=== PATIENT | male | born 1955 | race American Indian/Alaskan Native ===

== ENCOUNTER → 2019-05-31 | Outpatient (CLI) | payer OTHER ==
[~2019-05-31] MED LIST: AMOCLA875 PO; BENADRYL25 MG PO; DIALYVITE V5000 UNIT PO; HYDR1TAB94 PO; Maxalt Mlt10 MG PO; NAPR375 PO; OYSTER SHELL 51 EACH PO; PROM25 PO; Zyrtec10 MG
[2019-05-31 12:09] LABS: Calcium, Urine 35.5 mg/dL (< 17.5)
[2019-05-31 13:25] LABS: Creatinine Urine 99.2 mg/dL (27.00-270.00)
== END | disposition home or self-care (01) ==
LOC: LAB 09:38 → LAB SHORT 09:38
PROVIDERS: Internal Medicine Endocrinology, Diabetes & Metabolism
DX: E21.3 Hyperparathyroidism, unspecified (principal); M85.80 Other specified disorders of bone density and structure, unspecified site
CPT/HCPCS: 81050; 82340; 82570

== ENCOUNTER 2019-08-02 07:51 | Day surgery (SDC) | payer OTHER ==
[~2019-08-02] VITALS: Ht 165.1 cm; Wt 83.8 kg
[~2019-08-02 07:51] MED LIST changes: -OYSTER SHELL 51 EACH PO; -Zyrtec10 MG
[2019-08-02] MEDS ORDERED: Zyrtec10 MG (08:41)
== END 2019-08-02 12:24 | disposition home or self-care (01) ==
LOC: ORSCSDS 07:51
PROVIDERS: Otolaryngology
PROC: 0GTR0ZZ Resection of Parathyroid Gland, Open Approach (ICD-10-PCS; principal; 2019-08-02 09:15)
DX: E21.0 Primary hyperparathyroidism (principal)
CPT/HCPCS: 83970; 88307; 88331; J1100; J2250; J2405; J2704; J3010; J7120

== ENCOUNTER 2019-08-04 03:45 | Emergency (ER) | payer OTHER ==
[~2019-08-04] VITALS: Ht 165.1 cm; Wt 81.7 kg
[~2019-08-04 03:45] MED LIST changes: +Zyrtec10 MG
[2019-08-04] MEDS ORDERED: OYSTER SHELL 51 EACH PO (04:09)
[2019-08-04 04:34] LABS: BASOPHILS ABSOLUTE AUTO 0.08 K/mm3 (0.00-0.23); BASOPHILS PERCENT AUTO 1 % (0-2); EOSINOPHILS ABSOLUTE AUTO 0.44 K/mm3 (0.00-0.68); EOSINOPHILS PERCENT AUTO 5 % (0-6); Hematocrit 43.5 % (37.0-53.0); Hemoglobin 14.6 g/dL (13.5-17.5); IMMATURE GRAN ABSOLUTE AUTO 0.01 K/mm3 (0.00-0.10); IMMATURE GRAN PERCENT AUTO 0 % (0-1); LYMPHOCYTES ABSOLUTE AUTO 2.83 K/mm3 (0.84-5.20); LYMPHOCYTES PERCENT AUTO 34 % (21-46); MONOCYTES ABSOLUTE AUTO 0.66 K/mm3 (0.16-1.47); MONOCYTES PERCENT AUTO 8 % (4-13); Mean Corpuscular HGB 31.4 pg (26.0-34.0); Mean Corpuscular HGB Conc 33.6 g/dL (31.5-36.5); Mean Corpuscular Volume 94 fL (80-100); Mean Platelet Volume 9.5 fL (9.1-12.4); NEUTROPHILS ABSOLUTE AUTO 4.41 K/mm3 (1.96-9.15); NEUTROPHILS PERCENT AUTO 52 % (41-73); Platelet Count 202 K/mm3 (150-400); RDW Coefficient Variation 12.6 % (11.7-14.2); RDW Standard Deviation 43.5 fL (35.1-46.3); Red Blood Cell Count 4.65 M/mm3 (4.30-5.90); White Blood Cell Count 8.43 K/mm3 (4.00-11.30)
[2019-08-04 04:50] LABS: Alanine Aminotransfer (ALT/SGP 45 U/L (12-78); Albumin, Blood 3.5 g/dL (3.4-5.0); Albumin/Globulin Ratio 1.2 (0.8-1.8); Alk Phos 103 U/L (50-136); Anion Gap 7 mmol/L (6-16); Aspartate Aminotrans (AST/SGOT 20 U/L (12-37); Bilirubin, Total 0.3 mg/dL (0.1-1.0); Blood Urea Nitrogen 28 mg/dL (8-24); Bun/Creatinine Ratio 24.8 (12.0-20.0); CO2, Blood 25 mmol/L (21-32); Calcium, Blood 9.3 mg/dL (8.5-10.1); Chloride, Blood 110 mmol/L (98-108); Creatinine, Blood 1.13 mg/dL (0.60-1.20); Free Thyroxine 1.14 ng/dL (0.70-1.60); Globulin, Blood 2.9 g/dL (2.2-4.0); Glomerular Filtration Rate >60 (60-); Glucose, Blood 94 mg/dL (70-99); Potassium, Blood 3.9 mmol/L (3.5-5.5); Sodium, Blood 142 mmol/L (136-145); Total Protein, Blood 6.4 g/dL (6.4-8.2)
== END 2019-08-04 06:21 | disposition home or self-care (01) ==
LOC: ER 03:45
PROVIDERS: Emergency Medicine
DX: K13.0 Diseases of lips (principal)
CPT/HCPCS: 80053; 84439; 84443; 85025; 99283

== ENCOUNTER 2021-01-05 15:49 | Emergency (ER) | payer OTHER ==
[~2021-01-05] VITALS: Ht 165.1 cm; Wt 81.7 kg
[~2021-01-05 15:49] MED LIST changes: -DIALYVITE V5000 UNIT PO; +OYSTER SHELL 51 EACH PO; +VITAMIN D5000 UNIT PO
[2021-01-05 16:25] LABS: BASOPHILS ABSOLUTE AUTO 0.08 K/mm3 (0.00-0.23); BASOPHILS PERCENT AUTO 1 % (0-2); EOSINOPHILS ABSOLUTE AUTO 0.23 K/mm3 (0.00-0.68); EOSINOPHILS PERCENT AUTO 4 % (0-6); Hematocrit 46.3 % (37.0-53.0); Hemoglobin 15.7 g/dL (13.5-17.5); IMMATURE GRAN ABSOLUTE AUTO 0.01 K/mm3 (0.00-0.10); IMMATURE GRAN PERCENT AUTO 0 % (0-1); LYMPHOCYTES ABSOLUTE AUTO 1.91 K/mm3 (0.84-5.20); LYMPHOCYTES PERCENT AUTO 29 % (21-46); MONOCYTES ABSOLUTE AUTO 0.61 K/mm3 (0.16-1.47); MONOCYTES PERCENT AUTO 9 % (4-13); Mean Corpuscular HGB 30.4 pg (26.0-34.0); Mean Corpuscular HGB Conc 33.9 g/dL (31.5-36.5); Mean Corpuscular Volume 90 fL (80-100); Mean Platelet Volume 9.2 fL (9.1-12.4); NEUTROPHILS ABSOLUTE AUTO 3.78 K/mm3 (1.96-9.15); NEUTROPHILS PERCENT AUTO 57 % (41-73); Platelet Count 254 K/mm3 (150-400); RDW Coefficient Variation 12.4 % (11.7-14.2); RDW Standard Deviation 40.9 fL (35.1-46.3); Red Blood Cell Count 5.17 M/mm3 (4.30-5.90); White Blood Cell Count 6.62 K/mm3 (4.00-11.30)
[2021-01-05] MEDS ORDERED: CLEM1.34 PO (16:31)
[2021-01-05] MEDS ORDERED: ACIDOPHILUS PR1 EAC2 PO (16:32)
[2021-01-05 16:43] LABS: Alanine Aminotransfer (ALT/SGP 40 U/L (12-78); Albumin, Blood 4.3 g/dL (3.4-5.0); Albumin/Globulin Ratio 1.3 (0.8-1.8); Alk Phos 71 U/L (50-136); Anion Gap 3 mmol/L (6-16); Aspartate Aminotrans (AST/SGOT 24 U/L (12-37); Bilirubin, Total 0.7 mg/dL (0.1-1.0); Blood Urea Nitrogen 16 mg/dL (8-24); Bun/Creatinine Ratio 14.8 (12.0-20.0); CO2, Blood 30 mmol/L (21-32); Chloride, Blood 107 mmol/L (98-108); Creatinine, Blood 1.08 mg/dL (0.60-1.20); Globulin, Blood 3.3 g/dL (2.2-4.0); Glomerular Filtration Rate >60 (60-); Glucose, Blood 91 mg/dL (70-99); Potassium, Blood 4.1 mmol/L (3.5-5.5); Sodium, Blood 140 mmol/L (136-145); Total Protein, Blood 7.6 g/dL (6.4-8.2); Troponin I <0.015 ng/mL (0.000-0.040)
[2021-01-06] MEDS ORDERED: LANS15EC PO (12:04)
[2021-01-06] MEDS ORDERED: PROBIOTIC1 EA13 PO (15:49)
== END 2021-01-05 19:43 | disposition home or self-care (01) ==
LOC: ER 15:49
PROVIDERS: Physician Assistant
DX: R07.9 Chest pain, unspecified (principal)
CPT/HCPCS: 36415; 71045; 80053; 84484; 85025; 93005; 93010; 99284-25

== ENCOUNTER 2021-01-06 11:33 | Observation (INO) | payer OTHER ==
[~2021-01-06] VITALS: Ht 165.1 cm; Wt 83.7 kg
[~2021-01-06 11:33] MED LIST changes: +ACIDOPHILUS PR1 EAC2 PO; +CLEM1.34 PO
[2021-01-06] MEDS ORDERED: LANS15EC PO (12:04)
[2021-01-06 12:22] LABS: BASOPHILS ABSOLUTE AUTO 0.05 K/mm3 (0.00-0.23); BASOPHILS PERCENT AUTO 1 % (0-2); EOSINOPHILS ABSOLUTE AUTO 0.19 K/mm3 (0.00-0.68); EOSINOPHILS PERCENT AUTO 4 % (0-6); Hematocrit 48.2 % (37.0-53.0); Hemoglobin 16.3 g/dL (13.5-17.5); IMMATURE GRAN ABSOLUTE AUTO 0.01 K/mm3 (0.00-0.10); IMMATURE GRAN PERCENT AUTO 0 % (0-1); LYMPHOCYTES ABSOLUTE AUTO 1.49 K/mm3 (0.84-5.20); LYMPHOCYTES PERCENT AUTO 28 % (21-46); MONOCYTES ABSOLUTE AUTO 0.44 K/mm3 (0.16-1.47); MONOCYTES PERCENT AUTO 8 % (4-13); Mean Corpuscular HGB 30.8 pg (26.0-34.0); Mean Corpuscular HGB Conc 33.8 g/dL (31.5-36.5); Mean Corpuscular Volume 91 fL (80-100); Mean Platelet Volume 9.2 fL (9.1-12.4); NEUTROPHILS ABSOLUTE AUTO 3.09 K/mm3 (1.96-9.15); NEUTROPHILS PERCENT AUTO 59 % (41-73); Platelet Count 231 K/mm3 (150-400); RDW Coefficient Variation 12.6 % (11.7-14.2); RDW Standard Deviation 41.3 fL (35.1-46.3); White Blood Cell Count 5.27 K/mm3 (4.00-11.30)
[2021-01-06 12:36] LABS: Alanine Aminotransfer (ALT/SGP 40 U/L (12-78); Albumin, Blood 3.9 g/dL (3.4-5.0); Albumin/Globulin Ratio 1.1 (0.8-1.8); Alk Phos 64 U/L (50-136); Anion Gap 5 mmol/L (6-16); Aspartate Aminotrans (AST/SGOT 26 U/L (12-37); Blood Urea Nitrogen 16 mg/dL (8-24); Bun/Creatinine Ratio 16.3 (12.0-20.0); CO2, Blood 28 mmol/L (21-32); Calcium, Blood 8.5 mg/dL (8.5-10.1); Chloride, Blood 107 mmol/L (98-108); Creatinine, Blood 0.98 mg/dL (0.60-1.20); Globulin, Blood 3.4 g/dL (2.2-4.0); Glomerular Filtration Rate >60 (60-); Glucose, Blood 96 mg/dL (70-99); Potassium, Blood 4.3 mmol/L (3.5-5.5); Sodium, Blood 140 mmol/L (136-145); Total Protein, Blood 7.3 g/dL (6.4-8.2); Troponin I <0.015 ng/mL (0.000-0.040)
[2021-01-06] MEDS ORDERED: PROBIOTIC1 EA13 PO (15:49)
--- NOTE | 2021-01-06 16:39 | NUR ---
ADMISSION PT ADMITTED AT 1545. PT ORIENTED TO ROOM & CALL LIGHT. TELE APPLIED TO PT. RUNNING SINUS MIKEY IN THE 50S PER SEAL MIXING OPERATORCHANTELL MILLER. PT DENIES CP/PRESSURE AT THIS TIME. DENIES PAIN & SOB WELL. PT INSTRUCTED TO USE THE CALL LIGHT WHEN IN NEED AND THAT STAFF WILL ROUND ON PT EVERY HOUR.
--- NOTE | 2021-01-06 18:41 | NUR ---
SHIFT SUMMARY NO CHANGES IN ASSESSMENT SINCE ADMISSION. PT CONTINUES TO DENY CP AT THIS TIME. PT INSTRUCTED TO ALERT STAFF IF CP RETURNS. PT STATES HE UNDERSTANDS. PT IND IN ROOM & TO BATHROOM. CALL LIGHT IN REACH. VS REVIEWED. DENIES OTHER NEEDS AT THIS TIME. TO BE NPO AT MIDNIGHT FOR STRESS TEST SOMETIME TOMORROW.
--- NOTE | 2021-01-07 03:41 | NUR ---
SUMMARY PT DENIES ANY SOB OR CXP/ PRESSSURE. PT MADE NPO AT MIDNIGHT PER ORDERS. PT HAS SLEPT MOST OF SHIFT. CALL LIGHT IN REACH.
--- NOTE | 2021-01-07 16:45 | NUR ---
SHIFT SUMMARY PT HAD RESTING PORTION OF THE STRESS TEST COMPLETED TODAY. SECOND HALF WILL BE AT 1300 TOMORROW, SO PT IS TO BE NPO AFTER BREAKFAST. NO CAFFIENE AFTER MIDNIGHT. VS REVIEWED & STABLE. PT HAD DENIED CP/PRESSURE OR SOB T/O THE SHIFT. PT ENCOURAGED TO ALERT STAFF IF CP DEVELOPS. PT STATES HE UNDERSTANDS. PT HAD BEEN INDEPENDENT IN ROOM T/O SHIFT AND DENIED MOST NEEDS. SITTING IN BED AND WATCHING TV MOST THE DAY. NO ACUTE CHANGES IN ASSESSMENT AT THIS TIME.
--- NOTE | 2021-01-08 04:28 | NUR ---
SUMMARY PT REPORTED HE FELT THE BEGINNINGS OF A MIGRAINE. PROVIDER MARY CALLED AND HOME MIGRAINE MED WAS ORDERED. PT REPORTED THAT HE DID NOT HAVE THE FEELING OF A MIGRAINE ANY LONGER. PT DENIES CX PAIN OR SOB. PT HAS BEEN SLEEPING WELL T/O SHIFT. PT CURRENTLY SLEEPING AND IN NO DISTRESS.
[2021-01-08] MEDS ORDERED: FAMO20 PO (16:09)
--- NOTE | 2021-01-08 16:46 | NUR ---
DISCHARGED PT DISCHARGED TO HOME WITH . DENIES CP.NEGATIVE FOR STRESS TEST. MEDS FAXED TO [facility]. PT EDUCATED ABOUT HEARTBURN. PT ALREADY HAD AN APPOINTMENT THIS WEEK FOR PCP. PT INSTRUCTED TO FU FOR ANY WORSENING SYMPTOMS. PT IV DC'D.. PRINTED PACKETS WITH PT. DENIES ANY DISTRESS. VSS.
== END 2021-01-08 16:40 | disposition home or self-care (01) ==
LOC: ER 11:33 → MEDS 11:34 → ER 14:05 → MEDS 14:05
PROVIDERS: Emergency Medicine; ADMIT Internal Medicine
DX: R07.9 Chest pain, unspecified (principal); K21.9 Gastro-esophageal reflux disease without esophagitis; E21.1 Secondary hyperparathyroidism, not elsewhere classified; I10 Essential (primary) hypertension; E66.9 Obesity, unspecified; Z68.30 Body mass index [BMI] 30.0-30.9, adult
CPT/HCPCS: 36415; 78452; 80053; 83880; 84484; 85025; 93005; 93010; 93017; 99285-25; A9270; A9500; G0378

== ENCOUNTER 2022-11-11 12:01 | Day surgery (SDC) | payer MEDICARE, OTHER ==
[~2022-11-11] VITALS: Ht 165.1 cm; Wt 83.9 kg
[~2022-11-11 12:01] MED LIST changes: +FAMO20 PO; +LANS15EC PO; +PROBIOTIC1 EA13 PO
[2022-11-11] MEDS ORDERED: OMEP20ER (12:56)
[2022-11-11] MEDS ORDERED: ALLERGY RELIEF5 M1 (12:57)
== END 2022-11-11 15:05 | disposition home or self-care (01) ==
LOC: ORSCSDS 12:01
PROVIDERS: Internal Medicine Gastroenterology
PROC: 0DBN8ZX Excision of Sigmoid Colon, Via Natural or Artificial Opening Endoscopic, Diagnostic (ICD-10-PCS; principal; 2022-11-11 13:45)
DX: Z12.11 Encounter for screening for malignant neoplasm of colon (principal); K63.5 Polyp of colon; K57.30 Diverticulosis of large intestine without perforation or abscess without bleeding; E66.9 Obesity, unspecified; Z68.31 Body mass index [BMI] 31.0-31.9, adult; Z79.899 Other long term (current) drug therapy
CPT/HCPCS: 88305; J2704; J7120

== ENCOUNTER 2024-06-23 11:13 | Emergency (ER) | payer OTHER, MEDICARE ==
[~2024-06-23] VITALS: Ht 165.1 cm; Wt 83.9 kg
[~2024-06-23 11:13] MED LIST changes: +ALLERGY RELIEF5 M1; +OMEP20ER
[2024-06-23 11:45] VITALS: BP 163/97
[2024-06-23 12:12] LABS: BASOPHILS ABSOLUTE AUTO 0.09 K/mm3 (0.00-0.23); BASOPHILS PERCENT AUTO 1 % (0-2); EOSINOPHILS ABSOLUTE AUTO 0.18 K/mm3 (0.00-0.68); EOSINOPHILS PERCENT AUTO 3 % (0-6); Hematocrit 48.5 % (37.0-53.0); Hemoglobin 16.6 g/dL (13.5-17.5); IMMATURE GRAN ABSOLUTE AUTO 0.01 K/mm3 (0.00-0.10); IMMATURE GRAN PERCENT AUTO 0 % (0-1); LYMPHOCYTES ABSOLUTE AUTO 1.78 K/mm3 (0.84-5.20); LYMPHOCYTES PERCENT AUTO 25 % (21-46); MONOCYTES ABSOLUTE AUTO 0.53 K/mm3 (0.16-1.47); MONOCYTES PERCENT AUTO 7 % (4-13); Mean Corpuscular HGB Conc 34.2 g/dL (31.5-36.5); Mean Corpuscular Volume 91 fL (80-100); Mean Platelet Volume 9.5 fL (9.1-12.4); NEUTROPHILS ABSOLUTE AUTO 4.61 K/mm3 (1.96-9.15); NEUTROPHILS PERCENT AUTO 64 % (41-73); Platelet Count 203 K/mm3 (150-400); RDW Coefficient Variation 12.2 % (11.7-14.2); RDW Standard Deviation 40.1 fL (35.1-46.3); Red Blood Cell Count 5.36 M/mm3 (4.30-5.90)
[2024-06-23 12:24] LABS: Albumin/Globulin Ratio 1.2 (0.8-1.8); Bilirubin, Total 0.9 mg/dL (0.1-1.0); Bun/Creatinine Ratio 19.4 (12.0-20.0); Creatinine, Blood 1.03 mg/dL (0.60-1.20); Globulin, Blood 3.3 g/dL (2.2-4.0); Potassium, Blood 4.9 mmol/L (3.5-5.5); Total Protein, Blood 7.3 g/dL (6.4-8.2)
[2024-06-23] MEDS ORDERED: LevETIRAcetam 500 MG Tab PO ONE (13:35)
== END 2024-06-23 14:09 | disposition home or self-care (01) ==
LOC: ER 11:13
PROVIDERS: Emergency Medicine
DX: R56.9 Unspecified convulsions (principal); Z79.899 Other long term (current) drug therapy
CPT/HCPCS: 70450; 80053; 85025; A9270